=== PATIENT | male | born 1965 | race Two or more races ===

== ENCOUNTER 2025-01-11 21:22 | Emergency (ER) | payer MEDICAID ==
[~2025-01-11] VITALS: Ht 160 cm; Wt 62.9 kg
[2025-01-11 21:56] LABS: Basophils # (auto) 0.1 10 ^3/uL (0-0.2); Basophils % (auto) 0.6 % (0.0-2.0); Eosinophils # (auto) 0.6 10 ^3/uL (0-0.8); Eosinophils % (auto) 4.8 % (0.0-7.0); Hematocrit 40.6 % (41.0-53.0); Hemoglobin 14.1 g/dL (13.5-17.5); Lymphocytes # (auto) 1.2 10 ^3/uL (0.4-5.4); Lymphocytes % (auto) 9.3 % (10.0-50.0); Mean Corpuscular Hgb Conc. 34.8 g/dL (32.0-36.0); Mean Corpuscular Volume 91.9 fL (80.0-100.0); Monocytes # (auto) 1.1 10 ^3/uL (0-1.3); Neutrophils # (auto) 9.5 10 ^3/uL (1.6-8.6); Neutrophils % (auto) 76.3 % (37.0-80.0); Platelet Count (auto) 205 10^3/uL (140-450); Red Blood Cells 4.41 10^6/uL (4.5-5.90); Red Cell Distribution Width 13.7 % (11.8-14.3); White Blood Cell 12.4 10^3/uL (4.4-10.8)
[2025-01-11 22:07] LABS: Chloride 104 mmol/L (98-107); Potassium 4.2 mmol/L (3.5-5.1); Sodium 139 mmol/L (136-145)
[2025-01-11 22:08] LABS: Anion Gap 7 (5-15); Carbon Dioxide 28 mmol/L (20-31)
[2025-01-11 22:09] LABS: Calcium 9.9 mg/dL (8.7-10.4)
[2025-01-11 22:12] LABS: Urine Bacteria FEW /hpf (None Seen); Urine Blood 3+ /uL (Negative); Urine Clarity Turbid (Clear); Urine Color Dark-Yellow (Yellow); Urine Mucus FEW (None Seen); Urine Protein, UAD TRACE (Negative); Urine Specific Gravity 1.014 (1.001-1.035); Urine Squamous Epithelial Cell FEW /hpf (<5); Urine Urobilinogen 2 mg/dL (Negative); Urine WBC 607 /HPF (0-3); Urine WBC Clumps PRESENT /hpf (None Seen); Urine pH 6.5 (5.0-9.0)
[2025-01-11 22:13] LABS: BUN/Creatinine Ratio 15.3 (10.0-20.0); Blood Urea Nitrogen 17 mg/dL (9-23)
[2025-01-11 22:33] LABS: Glucose 138 mg/dL (74-106)
--- NOTE | 2025-01-11 23:10 | DVH ---
Exam: CT CT AB PEL WO CON-NO ORAL OR IV History: Bilateral flank pain Comparison Study: None TECHNIQUE: Multidetector CT of the abdomen was performed from lung bases to pubic symphysis. Imaging was performed without IV contrast. Axial, coronal and sagittal multiplanar reformats were obtained fr om the axial data set by the technologist. Radiation Dose Information: CT Dose: CTDI volume is 5.34 mGy. Dose-length product is 313.38 mGy*cm FINDINGS: Evaluation of solid organs is limited due to lack of intravenous contrast use. Findings: Lung Bases: No acute or significant lung base finding. Normal heart size. No pleural or pericardial effusion. Liver: The liver is normal in size. No focal lesions. Gallbladder and Biliary Tree: Unremarkable Spleen: Unremarkable Pancreas: The pancreas is grossly normal in appearance. Adrenal Glands: Unremarkable Kidneys: Kidneys are grossly normal without calculi or hydronephrosis. Bladder: Grossly unremarkable for degree of distention. Bowel: The stomach is grossly normal in appearance. Small bowel and colon are normal in caliber and d istribution. The appendix is not visualized; however, no secondary findings of acute appendicitis id entified. Ascites: Absent Lymphadenopathy: No mesenteric, retroperitoneal or periportal lymphadenopathy. Abdominal Wall and Mesentery: Unremarkable. Vasculature: The visualized abdominal aorta is normal in size and caliber. Evaluation of abdominal a nd pelvic vessels is limited due to lack of intravenous contrast. Pelvic Organs: Unremarkable Musculoskeletal: No aggressive focal bony lesions, acute fractures or dislocation. Soft tissues: Unremarkable IMPRESSION: 1. No nephrolithiasis or hydronephrosis. 2. No CT findings to suggest bowel obstruction. 3. Multiple hepatic cysts Radiation optimization: All CT scans at this facility use at least one of these dose optimization manda hniques: automated exposure control mA and/or kV adjustment per patient size (includes targeted exam s where dose is matched to clinical indication) or iterative reconstruction.
[2025-01-11] MEDS ORDERED: LEVO750T40 PO (23:57)
[2025-01-11] MEDS ORDERED: IBUP-1455 PO (23:57)
[2025-01-11] MEDS ORDERED: ACET500T58 PO (23:58)
--- NOTE | 2025-01-11 23:59 | ED.PDOC ---
History of Present Illness HPI Comments Patient is a Czech-speaking only 59-year-old male who arrives to the ED today for evaluation of bilateral flank pain concerns at leads her abdominal pain and in turn, lead to palpitation feelings seen with the patient. Patient denies any history of cardiac concerns. Patient states he was recently diagnosed with kidney stones and a urinary tract infection. Patient states he utilize the antibiotics as prescribed, but his symptoms remain. Patient denies any fever nausea or vomiting. Patient was febrile at arrival. Chief Complaint: Palpitations Time Seen by MD: 21:25 Reviewed Notes: Nurses Notes Allergies: Coded Allergies: NO KNOWN ALLERGIES (Unverified , 10/11/13) Information Source: Patient Mode of Arrival: Ambulatory Severity: Moderate Timing: Days Duration: Intermittent Prehospital treatment: None Past Medical History PAST MEDICAL HISTORY: Denies Past Medical History (Other): Patient states a recent history of kidney stones and a urinary tract infection. Surgical History: Denies all surgeries Family History Family History: Unknown Social History Smoker: Non-Smoker Alcohol: Denies ETOH Use Drugs: Denies Drug Use Lives In: Home Constitutional: denies: chills, diaphoresis, fatigue, fever, malaise, sweats, weakness, others EENTM: denies: blurred vision, double vision, ear bleeding, ear discharge, ear drainage, ear pain, ear ringing, eye pain, eye redness, hearing loss, mouth pain, mouth swelling, nasal discharge, nose bleeding, nose congestion, nose pain, photophobia, tearing, throat pain, throat swelling, voice changes, others Respiratory: denies: cough, hemoptysis, orthopnea, SOB at rest, shortness of breath, SOB with excertion, stridor, wheezing, others Cardiovascular: reports: palpitations; denies: chest pain, dizzy spells, diaphoresis, Dyspnea on exertion, edema, irregular heart beat, left arm pain, lightheadedness, PND, syncope, others Gastrointestinal: denies: abdomen distended, abdominal pain, blood streaked bowels, constipated, diarrhea, dysphagia, difficulty swallowing, hematemesis, melena, nausea, poor appetite, poor fluid intake, rectal bleeding, rectal pain, vomiting, others Genitourinary: reports: flank pain; denies: burning, dysuria, frequency, hematuria, incontinence, penile discharge, penile sore, pain, testicle pain, testicle swelling, urgency, others Neurological: denies: dizziness, fainting, headache, left sided numbness, left sided weakness, numbness, paresthesia, pre-existing deficit, right sided numbness, right sided weakness, seizure, speech problems, tingling, tremors, weakness, others Musculoskeletal: denies: back pain, gout, joint pain, joint swelling, muscle pain, muscle stiffness, neck pain, others Integumetry: denies: bruises, change in color, change in hair/nails, dryness, laceration, lesions, lumps, rash, wounds, others Allergic/Immunocompromised: denies: Difficulty Healing, Frequent Infections, Hives, Itching, others Hematologic/Lymphatic: denies: anemia, blood clots, easy bleeding, easy bruising, swollen glands, others Endocrine: denies: excessive hunger, excessive sweating, excessive thirst, excessive urination, flushing, intolerance to cold, intolerance to heat, unexplained weight gain, unexplained weight loss, others Psychiatric: denies: anxiety, bipolar disorder, depression, hopeless, panic disorder, schizophrenia, sleepless, suicidal, others Physical Exam General Appearance: Moderate Distress ( Moderate distress due to flank pain concerns. Patient states he is currently not experiencing palpitations.), Normal HEENT: Normal ENT Inspection, Pharynx Normal, TMs Normal Neck: Full Range of Motion, Non-Tender, Normal, Normal Inspection Respiratory: Chest Non-Tender, Lungs Clear, No Accessory Muscle Use, No Respiratory Distress, Normal Breath Sounds Cardiovascular: No Edema, No JVD, No Murmur, No Gallop, Normal Peripheral Pulses, Regular Rate/Rhythm Breast Exam: Deferred Gastrointestinal: Other ( Bilateral flank pain extending into the lower abdomen. No signs of trauma. No pulsatile masses.) Genitalia: Deferred Pelvic: Deferred Rectal: Deferred Extremities: No calf tenderness, Normal capillary refill, Normal inspection, Normal range of motion, Non-tender, No pedal edema Neurologic: Alert, No Motor Deficits, Normal Affect, Normal Mood, No Sensory Deficits Cerebellar Function: Normal Reflexes: Normal Skin: Dry, Normal Color, Warm Lymphatic: No Adenopathy Was a procedure done? Was a procedure done?: No Differential Dx Considerations may include: Kidney stones, pyelonephritis, urinary tract infection, musculoskeletal pain, palpitations X-Ray, Labs, Meds, VS Vital Signs Date Time Temp Pulse Resp B/P (MAP) Pulse Ox O2 Delivery O2 Flow Rate FiO2 01/11/25 21:30 91 01/11/25 21:25 100.3 89 18 141/75 (97) 95 100.3 Lab Test 01/11/25 22:43 01/11/25 21:40 Range/Units Troponin I High Sensitivity 5 4 </=54 ng/L White Blood Count 12.4 H 4.4-10.8 10^3/uL Red Blood Count 4.41 L 4.5-5.90 10^6/uL Hemoglobin 14.1 13.5-17.5 g/dL Hematocrit 40.6 L 41.0-53.0 % Mean Corpuscular Volume 91.9 80.0-100.0 fL Mean Corpuscular Hemoglobin 32.0 28.0-32.0 pg Mean Corpuscular Hemoglobin Concent 34.8 32.0-36.0 g/dL Red Cell Distribution Width 13.7 11.8-14.3 % Platelet Count 205 140-450 10^3/uL Mean Platelet Volume 8.5 6.9-10.8 fL Neutrophils (%) (Auto) 76.3 37.0-80.0 % Lymphocytes (%) (Auto) 9.3 L 10.0-50.0 % Monocytes (%) (Auto) 9.0 0.0-12.0 % Eosinophils (%) (Auto) 4.8 0.0-7.0 % Basophils (%) (Auto) 0.6 0.0-2.0 % Neutrophils # (Auto) 9.5 H 1.6-8.6 10 ^3/uL Lymphocytes # (Auto) 1.2 0.4-5.4 10 ^3/uL Monocytes # (Auto) 1.1 0-1.3 10 ^3/uL Eosinophils # (Auto) 0.6 0-0.8 10 ^3/uL Basophils # (Auto) 0.1 0-0.2 10 ^3/uL Nucleated Red Blood Cells 0.0 % Urine Color Dark-yellow Yellow Urine Clarity Turbid H Clear Urine pH 6.5 5.0-9.0 Urine Specific [place] 1.014 1.001-1.035 Urine Protein Trace H Negative Urine Ketones Negative Negative Urine Blood 3+ H Negative /uL Urine Nitrite 1+ H Negative Urine Bilirubin 1+ Negative Urine Urobilinogen 2 H Negative mg/dL Urine Leukocyte Esterase 3+ Negative /uL Urine RBC 57 0 - 3 /hpf Urine WBC Clumps Present None Seen /hpf Urine Microscopic WBC 607 H 0-3 /HPF Urine Squamous Epithelial Cells Few <5 /hpf Urine Bacteria Few H None Seen /hpf Urine Mucus Few None Seen Urine Glucose Normal Normal mg/dL Sodium Level 139 136-145 mmol/L Potassium Level 4.2 3.5-5.1 mmol/L Chloride Level 104 98-107 mmol/L Carbon Dioxide Level 28 20-31 mmol/L Anion Gap 7 5-15 Blood Urea Nitrogen 17 9-23 mg/dL Creatinine 1.11 0.700-1.30 mg/dL Glomerular Filtration Rate Calc 76 >90 mL/min BUN/Creatinine Ratio 15.3 10.0-20.0 Serum Glucose 138 H 74-106 mg/dL Calcium Level 9.9 8.7-10.4 mg/dL X-Ray, Labs, Meds, VS Comment All studies performed the ED were evaluated by me personally. EKG of the patient revealed a sinus rhythm with a rate of 52. 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 [place] interval 164 [address] QT interval [address] of the abdomen and pelvis was unremarkable for any nephrolithiasis or hydronephrosis. Multiple hepatic cysts were noted. Serum laboratories were unremarkable for any systemic process, but urinalysis confirmed a large UTI/ pyelonephritis. Patient was given his 1st dose of antibiotics prior to discharge. Advised patient utilize antibiotics as directed until completion. Patient should follow up with his primary care provider once antibiotics are complete for re- evaluation has he seems to have been dealing with a antibiotic resistant strain. Time of 1ST Reevaluation: 23:54 Reevaluation 1ST: Improved Consultation: PCP Patient Education/Counseling: Diagnosis, Treatment Family Education/Counseling: Diagnosis, Treatment Departure 1 Departure Time of Disposition: 23:56 Impression: Primary Impression: Pyelonephritis Disposition: HOME / SELF CARE / HOMELESS Condition: Stable Additional Instructions: Advise utilizing antibiotics as directed until completion as well as additional medication as needed for symptomatic relief. The patient continues to experience palpitations, he will need to follow up with his primary care provider for a cardiology referral and evaluation. e-Prescriptions Acetaminophen (Acetaminophen) 500 Mg Tab 500 MG PO Q4HP PRN, #30 TAB Prov: ALEENA GUPTA PAC 01/11/25 Ibuprofen Micronized (Ibuprofen) 800 Mg Tab 800 MG PO Q8HP PRN, #20 TAB Prov: ALEENA GUPTA PAC 01/11/25 Levofloxacin Hemihydrate (LEVOFLOXACIN) 750 Mg Tab 1 TAB PO DAILY for 9 Days, #9 TAB Prov: ALEENA GUPTA PAC 01/11/25 Discharged With: Self, Friend Critical Care Note Critical Care Time?: No Stability Stability form required: No Heart Score Heart Score: Heart Score Response (Comments) Value History Slightly Suspicious 0 EKG Repolarization Disturb 1 Age 45-64 1 Risk Factors 1 or 2 risk factors 1 Troponin Normal limit 0 Total 3 ALEENA GUPTA PAC January 11, 2025 23:59
[2025-01-12 00:36] VITALS: BP 133/80; PULSE 59; RESP 18; TEMP 98.9; O2SAT 97
[2025-01-12] MEDS: KETOROLAC TROMETH 60MG/2ML VIAL IM ONE (00:38)
[2025-01-12] MEDS: levoFLOXacin 250 MG TAB PO ONE (00:38)
[2025-01-12] MEDS: HYDROcodone-ACET 10/325MG TAB PO ONE (00:38)
--- NOTE | 2025-01-12 05:37 | ECG ---
[facility] Test Date: 2025-01-11 Test Time: 23:50:31 Pat Name: ALLYSON BEAVERS Department: ER Room: Gender: M [employer] Professor: KARLY : 1965 Requested By: ALEENA GUPTA Order Number: [id number] Reading MD: Vitaliy Pina Measurements Intervals [place] Rate: 52 P: 30 [place]: 164 QRS: -85 QRSD: 106 T: -6 QT: 412 QTc: 384 Interpretive Statements Sinus rhythm Incomplete RBBB and LAFB RVH with secondary repolarization abnrm Electronically Signed On 01-13-2025 21:01:46 PDT by Vitaliy Pina Please click the below link to view image of tracing.
--- NOTE | 2025-01-12 14:41 | ECG ---
[facility] Test Date: 2025-01-11 Test Time: 21:30:58 Pat Name: ALLYSON BEAVERS Department: er Room: Gender: M [employer] Consultant: : 1965 Requested By: ALEENA GUPTA Order Number: [id number] Reading MD: Vitaliy Pina Measurements Intervals [place] Rate: 91 P: 54 [place]: 151 QRS: -95 QRSD: 101 T: 18 QT: 345 QTc: 425 Interpretive Statements Sinus rhythm Incomplete RBBB and LAFB Minimal ST elevation, lateral leads Baseline wander in lead(s) II,aVF Electronically Signed On 01-13-2025 21:01:16 PDT by Vitaliy Pina Please click the below link to view image of tracing.
== END 2025-01-12 01:00 | disposition home or self-care (01) ==
LOC: ER 21:22
DX: N12 Tubulo-interstitial nephritis, not specified as acute or chronic (principal); Z87.442 Personal history of urinary calculi
CPT/HCPCS: 36415; 74176; 80048; 81001; 84484; 85025; 93005; 96372; 99285; J1885